=== PATIENT | female | born 1970 | race Caucasian/White ===

== ENCOUNTER → 2017-02-27 | Outpatient (CLI) | payer BC ==
[2017-02-27 13:49] LABS: HEMOGLOBIN 13.8 gm/dl (12.3-15.3); RED BLOOD COUNT 4.75 M/UL (4.00-5.10); WHITE BLOOD COUNT 6.9 K/UL (4.5-11.0)
[2017-02-27 14:07] LABS: BUN/CREATININE RATIO 24 (0-10)
== END ==
LOC: LAB 11:01
PROVIDERS: Nurse Practitioner Family
DX: M54.6 Pain in thoracic spine (principal); M54.2 Cervicalgia; E53.8 Deficiency of other specified B group vitamins; E55.9 Vitamin D deficiency, unspecified; E78.00 Pure hypercholesterolemia, unspecified; M47.892 Other spondylosis, cervical region
CPT/HCPCS: 36415; 72040; 72070; 80048; 80061; 80074; 80076; 82607; 84443; 85025

== ENCOUNTER → 2022-03-06 | Outpatient (CLI) | payer OTHER | LOC: MAMO 08:09 | DX: Z12.31 Encounter for screening mammogram for malignant neoplasm of breast (principal) | CPT/HCPCS: 77063; 77067 ==